=== PATIENT | male | born 1970 ===

== ENCOUNTER 2021-03-22 06:44 | Day surgery (SDC) | payer OTHER ==
[2021-03-22] VITALS (13 sets, daily range): BP systolic 86–119; BP diastolic 57–76
[~2021-03-22] VITALS: Ht 167.6 cm; Wt 74.3 kg
[~2021-03-22 06:44] MED LIST: ACET325T63 PO; CETI10TA18 PO; OMEG1CAP46 PO; OMEG1CAP61 PO; OMEP-50 PO; TRIA10.8 BOTHNARES; cefazolin/dext.iso 2gm/100ml IV ONE; famotidine 20mg tablet PO ONE; ringers solution, lacted 1,000 ML IV SCH
[2021-03-22] MEDS ORDERED: midazolam 1 mg/ML 2ml injection ONE (08:12)
[2021-03-22] MEDS ORDERED: fentaNYL/PF 50MCG/1 ML 2ML syringe ONE ×2 (08:12→11:00)
[2021-03-22] MEDS ORDERED: ROPIVAcaine 0.5% (5mg/ml) 30ml vial ONE (08:13)
[2021-03-22] MEDS ORDERED: propofol inj 20 ML IV ONE (08:13)
[2021-03-22] MEDS ORDERED: ondansetron/PF 4mg/2ml inj ONE (08:14)
[2021-03-22] MEDS ORDERED: LIDOcaine 2% (20mg/ml) 5ml vial ONE (08:14)
[2021-03-22] MEDS ORDERED: dexamethasone sod phosphate 4mg/ml inj. ONE (08:14)
[2021-03-22] MEDS ORDERED: ceFAZolin 1000mg inj ONE (08:15)
[2021-03-22] MEDS ORDERED: ringers solution, lacted 1,000 ML IV SCH ×2 (08:20→09:45)
[2021-03-22] MEDS ORDERED: morphine 2 MG/ML inj. syringe IV PRN ×2 (08:20→09:45)
[2021-03-22] MEDS ORDERED: morphine 4 MG/ML inj SYRINge IV PRN ×2 (08:20→09:45)
[2021-03-22] MEDS ORDERED: fentaNYL/PF 50MCG/1 ML 2ML syringe IV PRN ×4 (08:20→09:45)
[2021-03-22] MEDS ORDERED: hydrALAZINE 20mg/ml inj. IV PRN ×2 (08:20→09:45)
[2021-03-22] MEDS ORDERED: ondansetron/PF 4mg/2ml inj IV PRN ×2 (08:20→09:45)
[2021-03-22] MEDS ORDERED: labetalol 20mg/4ml (5mg/ml) syringe IV PRN (08:20)
[2021-03-22] MEDS ORDERED: sevoflurane 250ml liquid IH ONE (09:06)
[2021-03-22] MEDS ORDERED: enalaprilat dihydrate 2.5mg/2ml vial IV PRN (09:45)
[2021-03-22] MEDS ORDERED: acetaminophen 1,000mg/100ml IV 100 ML IV ONE (10:11)
--- NOTE | 2021-03-22 11:12 | NUR ---
Received from OR via [facility], accompanied by Anesthesiologist AUGUSTA and report given by Anesthesiolgist. PT. ON 6 L O2 VIA MASK. MOVES ALL EXTREMITIES. SENSATION INTACT EXCEPT SURGICAL LEG. PULSES PALPABLE ON ALL EXTREMITIES. VSS. AROUSABLE. DENIES PAIN AT THIS TIME. LR INFUSING AT 100 ML/HR IN L. WRIST 20 G. IV. CDI. BRACE ON LEFT LE, LARRY CLEAN DRY. Addendum: 03/22/21 at 1329 by Maggi Marrero RN Amended: Links added.
--- NOTE | 2021-03-22 12:12 | NUR ---
PT. REPORT OF NAUSEA, ZOFRAN GIVEN. PT. RESTING AT THIS TIME. Addendum: 03/22/21 at 1214 by Maggi Marrero RN Amended: Links added.
--- NOTE | 2021-03-22 13:02 | NUR ---
PT. DC TO ASSISTED WITH GUARDS. PT. TRANSFERRED TO VEHICLE VIA . ALL DISCHARGE CRITERIA MET. VSS. NAUSEA RELIEF NOTED. PT. ALERT AND ABLE TO ASSIST WITH TRANSFER. BRACE INTACT ON LEFT LEG. NO DRAINAGE NOTED ON DRESSING. DENIES PAIN. IV REMOVED. DENIED NEED TO USE RESTROOM. PULSES LOCATED WITH DOPPLER ON B. LE. EDUCATION AND PAPERWORK GIVEN TO GUARDS. Addendum: 03/22/21 at 1323 by Maggi Marrero RN Amended: Links added.
== END 2021-03-22 13:02 ==
LOC: PAS 06:44 → EEVIPCON 14:30
PROVIDERS: ATTEND Orthopaedic Surgery
DX: S83.512A Sprain of anterior cruciate ligament of left knee, initial encounter (principal); S83.232A Complex tear of medial meniscus, current injury, left knee, initial encounter; K21.9 Gastro-esophageal reflux disease without esophagitis; G89.18 Other acute postprocedural pain; Z90.5 Acquired absence of kidney; Z79.899 Other long term (current) drug therapy; Z98.890 Other specified postprocedural states; X58.XXXA Exposure to other specified factors, initial encounter; Y93.89 Activity, other specified; Y92.89 Other specified places as the place of occurrence of the external cause; Y99.8 Other external cause status
CPT/HCPCS: 29881; 29888; 64447; 76942; 82948; C1713; C1762; J0131; J0690; J1100; J2001; J2250; J2405; J2704; J3010; J7120; L1832; Z7506; Z7508; Z7512; A4215; A4618; A6449; A7000; J2795